=== PATIENT | female | born 1980 | race Caucasian/White ===

== ENCOUNTER 2021-07-11 15:33 | Emergency (ER) | payer OTHER ==
[~2021-07-11] VITALS: Ht 160 cm; Wt 90.7 kg
[2021-07-11 15:46] VITALS: BP_SYST 136
[2021-07-11] MEDS ORDERED: IBUP-1971 PO (16:57)
[2021-07-11] MEDS ORDERED: HYDR-3917 PO (16:57)
[2021-07-11 17:24] VITALS: BP_SYST 122
== END 2021-07-11 17:24 | disposition home or self-care (01) ==
LOC: SED 15:33
DX: S92.355A Nondisplaced fracture of fifth metatarsal bone, left foot, initial encounter for closed fracture (principal); Z79.899 Other long term (current) drug therapy; X50.1XXA Overexertion from prolonged static or awkward postures, initial encounter; Y93.89 Activity, other specified; Y92.89 Other specified places as the place of occurrence of the external cause; Y99.8 Other external cause status
CPT/HCPCS: 99283